=== PATIENT | female | born 1980 | race Hispanic/Latino ===

== ENCOUNTER 2017-01-12 13:08 | Emergency (ER) | payer MEDICAID ==
[2017-01-12 14:08] LABS: BASO % 0.3 % (0.0-2.0); EOS % 0.2 % (0.0-4.0); HEMATOCRIT 41.7 % (34.0-47.0); LYMPH % 10.1 % (20.0-40.0); MEAN CELL VOLUME 89.7 fL (81.0-99.0); MEAN CORPUSCULAR HEMOGLOBIN 29.9 pg (27.0-31.0); MEAN CORPUSCULAR HGB CONC 33.4 g/dL (33.0-37.0); MEAN PLATELET VOLUME 9.2 fL (7.2-11.7); MONO # 0.3 K/uL (0.0-0.8); MONO % 3.5 % (0.0-10.0); NRBC % 0.1 % (0.0-2.0); RED CELL DISTRIBUTION WIDTH 13.7 % (11.5-14.5); WHITE BLOOD COUNT 9.7 K/uL (4.8-10.8)
[2017-01-12 14:14] LABS: URINE BILIRUBIN NEGATIVE (NEGATIVE); URINE BLOOD NEGATIVE (NEGATIVE); URINE COLOR Colorless (YELLOW); URINE GLUCOSE (UA) NORMAL (Normal); URINE KETONE NEGATIVE (NEGATIVE); URINE LEUKOCYTE ESTERASE NEG Leu/uL (Negative); URINE PROTEIN NEGATIVE (NEGATIVE); URINE UROBILINOGEN NORMAL mg/dL (0.2-1.0)
[2017-01-12 14:17] LABS: CHLORIDE 102 mmol/L (98-107); POTASSIUM 3.8 mmol/L (3.6-5.2); SODIUM 138 mmol/L (132-148)
[2017-01-12 14:19] LABS: BILIRUBIN,TOTAL 0.6 mg/dL (0.2-1.3); GFR AFRICAN-AMERICAN > 60
[2017-01-12 14:20] LABS: ALB/GLOB RATIO 1.6 (1.0-2.1); ALKALINE PHOSPHATASE 77 U/L (38-126); ALT/SGPT 21 U/L (9-52); AST/SGOT 22 U/L (14-36); BLOOD UREA NITROGEN 6 mg/dL (7-17); CARBON DIOXIDE 23 mmol/L (22-30); GLUCOSE,RANDOM 96 mg/dL (65-105); TOTAL PROTEIN 7.6 g/dL (6.3-8.3)
[2017-01-12 14:21] LABS: ALCOHOL SERUM < 10 mg/dl (0-10); CALCIUM 8.8 mg/dl (8.6-10.4)
--- NOTE | 2017-01-12 14:21 | C.PDOC ---
History Of Present Illness 36 year old patient presents to the ED complaining of severe anxietyand depression. Patient has a history of depression follow her mothers suicide 15 years ago. Her mother committed suicide by hanging herself. Patient states she has been fine since then, but for the last few weeks she has been feeling anxious. She has not been sleeping or eating normally. She also complains of feeling short of breath with chest pain and a feeling of tremors. Patient recently had a psychiatric evaluation at [facility] and was referred to outpatient therapy, but she couldn't follow up. Today, patient complains of feeling agitated and shaky. She states she "can't go on like this anymore". She has intermittent suicidal ideation. She denies having a specific plan. Patient notes she has chronic back pain which is well controlled in pain management Patient admits to smoking cigarettes, but denies drug use. Patient also denies nausea, vomiting, numbness, weakness, homicidal ideation. Time Seen by Provider: 01/12/17 13:23 Chief Complaint (Nursing): Psychiatric Evaluation History Per: Patient History/Exam Limitations: no limitations Onset/Duration Of Symptoms: Other (last few weeks) Current Symptoms Are (Timing): Still Present Suicide/Self Injury Attempted (Context): None Modifying Factor(s): None Severity: None Pain Scale Rating Of: 0 Associated Symptoms: Anxiety, Agitation, Depression, Suicidal Thoughts Recent travel outside of the [place]: No Past Medical History Reviewed: Historical Data, Nursing Documentation, Vital Signs Vital Signs: Last Vital Signs Temp 98.0 F 01/12/17 13:16 Pulse 84 01/12/17 13:16 Resp 20 01/12/17 13:16 BP 143/86 01/12/17 13:16 Pulse Ox 100 01/12/17 16:29 Family History: States: Unknown Family Hx - Social History Hx Tobacco Use: Yes (cigarettes) Hx Alcohol Use: No Hx Substance Use: No Review Of Systems Except As Marked, All Systems Reviewed And Found Negative. Cardiovascular: Negative for: Palpitations Respiratory: Positive for: Shortness of Breath Gastrointestinal: Negative for: Nausea, Vomiting Musculoskeletal: Negative for: Back Pain Neurological: Negative for: Weakness, Numbness Psych: Positive for: Anxiety, Depression, Suicidal ideation. Negative for: Other (homicidal ideation) Physical Exam - Physical Exam Appears: Non-toxic, Agitated, Other (sad affect, shakey, soft spoken, cooperative) Skin: Warm, Dry Head: Atraumatic, Normacephalic Neck: Normal ROM, Supple Chest: Symmetrical Cardiovascular: Rhythm Regular Respiratory: Normal Breath Sounds, No Rales, No Rhonchi, No Wheezing Gastrointestinal/Abdominal: Soft, No Tenderness Back: Normal Inspection, No CVA Tenderness, No Vertebral Tenderness Extremity: Normal ROM Neurological/Psych: Oriented x3, Normal Speech Gait: Steady ED Course And Treatment - Laboratory Results Result Diagrams: 01/12/17 14:02 01/12/17 14:02 Lab Interpretation: No Acute Changes ECG: Interpreted By Me ECG Rhythm: Sinus Rhythm ECG Interpretation: Normal O2 Sat by Pulse Oximetry: 100 (room air) Pulse Ox Interpretation: Normal - Radiology CXR: Interpreted by Me CXR Interpretation: Yes: No Acute Disease Progress Note: 4:30 Patient takes Oxycodone 60mg Immediate release Q4H and is due to have Nortryptline 10mg PO now. Medications ordered for her. Reevaluation Time: 14:54 Reassessment Condition: Improved (after PO Ativan. Awaiting psychiatric eval.) Medical Decision Making Medical Decision Making: Plan: * EKG * Labs * Ativan * Chest x-ray * * Patient is medically cleared for psychiatric evaluation and transfer. Disposition - Disposition Disposition: Trans to Other Acute Care Hosp Disposition Time: 18:56 Condition: STABLE - Clinical Impression Clinical Impression: Moderate major depression, single episode, Suicidal ideation - Scribe Statement The provider has reviewed the documentation as recorded by the Scribe Sima Carreon Provider Attestation: All medical record entries made by the Scribe were at my direction and personally dictated by me. I have reviewed the chart and agree that the record accurately reflects my personal performance of the history, physical exam, medical decision making, and the department course for this patient. I have also personally directed, reviewed, and agree with the discharge instructions and disposition.
--- NOTE | 2017-01-12 14:59 | RAD ---
HISTORY: medical clearance COMPARISON: No prior. TECHNIQUE: Chest PA and lateral FINDINGS: LUNGS: No active pulmonary disease. PLEURA: No significant pleural effusion identified. No pneumothorax apparent. CARDIOVASCULAR: Normal. OSSEOUS STRUCTURES: No significant abnormalities. VISUALIZED UPPER ABDOMEN: Normal. OTHER FINDINGS: None. IMPRESSION: No active disease.
[2017-01-12 15:07] LABS: FREE T4 0.85 ng/dL (0.78-2.19)
[2017-01-12 15:21] LABS: THYROID STIMULATING HORMONE 0.1 mIU/L (0.46-4.68)
[2017-01-12] MEDS ORDERED: oxyCODONE 30 mg Immediate Release Tab PO STA (16:26)
[2017-01-12] MEDS ORDERED: oxyCODONE 30 mg Immediate Release Tab ONE (16:38)
[2017-01-12 19:06] VITALS: BP 114/78
[2017-01-12 23:02] VITALS: PULSE 88; RESP 18; TEMP 98.2; O2SAT 100
--- NOTE | 2017-01-13 22:59 | CARD ---
APPROVED REPORT EKG Measurement Heart [id number] [place] [id number] <Conclusion> Normal sinus rhythm Normal ECG
== END 2017-01-12 23:00 | disposition short-term general hospital (02) ==
LOC: C.ER 13:08
DX: F32.1 Major depressive disorder, single episode, moderate (principal); R45.851 Suicidal ideations; F17.210 Nicotine dependence, cigarettes, uncomplicated

== ENCOUNTER 2017-09-06 21:40 | Inpatient (IN) | payer MEDICAID ==
--- NOTE | 2017-09-06 21:54 | C.PDOC ---
History Of Present Illness pt was accepted in transfer from [facility] by dr Boyce. Pt was medically cleared at [facility]. Denies any suicidal or homicidal ideation at the present time. Time Seen by Provider: 09/06/17 21:51 Chief Complaint (Nursing): Psychiatric Evaluation History Per: Patient History/Exam Limitations: no limitations Onset/Duration Of Symptoms: Days Current Symptoms Are (Timing): Still Present Suicide/Self Injury Attempted (Context): None Modifying Factor(s): None Severity: None Associated Symptoms: Anxiety, Depression Involuntary Hold By: None Recent travel outside of the [place]: No Additional History Per: Patient Past Medical History Reviewed: Historical Data, Nursing Documentation, Vital Signs - Medical History PMH: Anxiety, Back Problems, Depression, Fibromyalgia Denies: Diabetes, Hepatitis, HIV, HTN, Chronic Kidney Disease, Seizures, Sexually Transmitted Disease - [facility] Procedures APPLICATION OF SPLINT (05/25/07) CLOSURE SKIN & SUBCUTANEOUS NEC (02/15/02) GROUP PSYCHOTHERAPY (01/12/17) INDIVIDUAL PSYCHOTHERAPY, COGNITIVE-BEHAVIORAL (01/12/17) INJECT/INFUSE NEC (05/04/07) NEBULIZER THERAPY (11/09/05) PSYCHIAT DRUG THERAP NEC (12/24/02) RADICAL EXCIS SKIN LES (12/29/01) Family History: States: No Known Family Hx - Social History Hx Tobacco Use: Yes (cigarettes) Hx Alcohol Use: No Hx Substance Use: No - Immunization History Hx Tetanus Toxoid Vaccination: No Hx Influenza Vaccination: No Hx Pneumococcal Vaccination: No Review Of Systems Constitutional: Negative for: Fever, Chills Eyes: Negative for: Redness Cardiovascular: Negative for: Chest Pain Respiratory: Negative for: Shortness of Breath Gastrointestinal: Negative for: Abdominal Pain Genitourinary: Negative for: Dysuria Musculoskeletal: Negative for: Back Pain Skin: Negative for: Rash Neurological: Negative for: Confusion, Dizziness Psych: Positive for: Anxiety, Depression Physical Exam - Physical Exam Appears: Non-toxic, No Acute Distress Skin: Warm, Dry Head: Normacephalic Eye(s): bilateral: Normal Inspection Chest: Symmetrical Cardiovascular: Rhythm Regular Respiratory: No Rales, No Rhonchi, No Wheezing Gastrointestinal/Abdominal: Soft, No Tenderness, No Distention Back: Normal Inspection Extremity: Normal ROM Extremity: Bilateral: Atraumatic Neurological/Psych: Oriented x3 Gait: Steady Disposition Discussed With : Mustapha Boyce Comment: accepted the pt onhis service and took over the care at 9:53PM Doctor Will See Patient In The: Hospital Counseled Patient/Family Regarding: Studies Performed, Diagnosis - Disposition Disposition: HOSPITALIZED Disposition Time: 21:53 Condition: FAIR - POA Present On Arrival: None - Clinical Impression Clinical Impression: Depression, Anxiety Decision To Admit - Pt Status Changed To: Hospital Disposition Of: Inpatient - Admit Certification Admit to Inpatient:: After my assessment, the patient will require hospitalization for at least two midnights. This is because of the severity of symptoms shown, intensity of services needed, and/or the medical risk in this patient being treated as an outpatient. - InPatient: Physician Admission Certification: I certify that this patient requires 2 or more midnights of care for the following reason:: After my assessment, the patient will require hospitalization for at least two midnights. This is because of the severity of symptoms shown, intensity of services needed, and/or the medical risk in this patient being treated as an outpatient. - . Bed Request Type: Psychiatry Admitting Physician: Mustapha Boyce Patient Diagnosis: Depression, Anxiety
--- NOTE | 2017-09-06 22:42 | PCM.BM ---
<Zunilda Maria - Last Filed: 09/06/17 22:41> Treatment Plan Problems - Problems identified on initial assessmt Suicidal Ideation Date Initiated: 09/06/17 Time Initiated: 22:41 Assessment reference: NA Status: Monitor Depression Date Initiated: 09/06/17 Time Initiated: 22:42 Assessment reference: NA Status: Active Treatment assets and liabiliti Patient Assests: cooperative, insightful Patient Liabilities: substance abuse - Milieu Protocol Maintain good personal hygiene: every shift Encourage regular showers, every shift Remind patient to perform daily oral care, every shift Assist patient to perform ADL's Maintain personal safety: every shift Educate patient to report safety concerns to staff, every shift Monitor environment for contraband/sharps Medication safety: Monitor for expected outcome, potential side effects: every shift, Assess barriers to learning: every shift, Assess readiness for medication education: every shift <Leonor Mancia - Last Filed: 09/07/17 10:56> Family Contact Family involvement: Family/SO is involved Family contact: Patient declines to allow family contact at present - Goals for Treatment Patient goals for treatment: "I need a therapist." Discharge/Continuing Care - Education Needs Education Needs: Patient Medication, Patient Coping Skills, Patient Placement options, Patient Community resources - Discharge Discharge Criteria: Tolerates medication w/o severe side effects, No longer exhibiting s/s of withdrawal, Reduction of target symptoms Discharge to:: Home, With Family - Treatment Team Participation Discussed with Family/SO: No Was Patient/Family/SO present at Treatment Team Meeting: Yes <Cathleen Fuentes - Last Filed: 09/07/17 11:22> - Diagnosis (1) Bipolar affective, depress, unspec Status: Acute Interventions: 09/07/17 11:22 * Assess/adjust medications daily and /or as needed * See patient on an individual basis 7x/week to assess level of manic behaviors and stability * Discuss risks, benefits, side effects and alternatives of medications * (2) Opioid use disorder, severe, dependence Status: Acute Interventions: 09/07/17 11:22 * Assess 7x/week regarding severity of withdrawal * Educate regarding risks, benefits, side effects and alternatives of medications * Use Motivational Interviewing for abstinence * Use CBT for relapse prevention * Medication management for withdrawal symptoms * Encourage medication assisted treatment *
--- NOTE | 2017-09-07 10:56 | PCM.PSYCH ---
Initial Psychiatric Evaluation - Initial Psychiatric Evaluation Type of Admission: Voluntary Legal Status: Capacity Chief Complaint (in patient's own words): I was feeling depressed.' History of Present Illness and Precipitating Events: Pt is a 36 year old CF, currently lives with her and 1 daughter and works as [employer] tech, was transferred from [facility] for depressed mood and suicidal ideation. Pt reports history of bipolar disorder and reports history of multiple in patient psychiatric admissions for depression and PTSD, last discharged 6 months ago. She reports that she is taking oxycodone for back pain and endometriosis. 1 week ago she fell down on a knife, was taken to the [facility] [place] [place] and abdominal surgery was done. She reports that, since then she is becoming increasingly depressed. Yesterday she developed suicidal ideation so came to the hospital to get help. She reports h/o suicidal ideation in the past but never attempted. Patient also reports of taking 4-6 30mg oxycodone pills, but denies any opioid abuse. She reports depressed mood and feelings of hopelessness and worthlessness. She also reports racing of thoughts, poor concentration and poor sleep. Pt remained isolated and withdrawn in the unit. She denies any HI. She also denies any AVH or any delusions. PMH: Endometriosis Current Medications: Active Medications Generic Name Dose Route Start Last Admin Trade Name Freq PRN Reason Stop Dose Admin Hydroxyzine HCl 25 mg 09/06/17 23:00 Atarax PO Q6 PRN Anxiety Lorazepam 1 mg 09/06/17 23:00 09/07/17 06:50 Ativan PO 1 mg Q6 PRN Administration Agitation Pneumococcal Polyvalent Vaccine 0.5 ml 09/09/17 10:20 Pneumovax 23 Vaccine IM 09/09/17 10:21 .ONCE ONE Trazodone HCl 50 mg 09/06/17 23:00 09/06/17 23:21 Desyrel PO 50 mg HS PRN Administration Insomnia Past Psychiatric History - Past Psychiatric History Previous Treatment History: Inpatient Pertinent Medical Hx (Current Medical&Sleep Prob, Allergies): Allergies Allergy/AdvReac Type Severity Reaction Status Date / Time No Known Allergies Allergy Unverified 09/06/17 21:56 No Known Home Med 09/06/17 Review of Systems - Review of Systems All systems: reviewed and no additional remarkable complaints except - Psychiatric Psychiatric: Anxiety, Irritability, Suicidal Ideation Mental Status Examination - Personal Presentation Personal Presentation: Looks stated age - Affect Affect: Constricted, Depressed - Motor Activity Motor Activity: Calm - Reliability in Providing Information Reliability in Providing Information: Good - Speech Speech: Organized - Mood Mood: Depressed, Anxious - Formal Thought Process Formal Thought Process: No Impairment - Obsessions/Compulsions Obsessions: No Compulsions: No - Cognitive Functions Orientation: Person, Place, Situation, Time Sensorium: Alert Attention/Concentration: Attentive Abstract Thinking: [place] Estimate of Intelligence: Below average Judgement: Imparied, as evidence by: Poor judgement, Imparied, as evidence by: Lack of insight into illness - Risk Risk: Suicidal, Diminished functioning - Strength & Assets Inventory Strength & Assets Inventory: Family support, Employment status DSM 5 DX - DSM 5 DSM 5 Diagnosis: Bipolar disorder mixed severe without psychotic features Opiod use moderate - Recommended/Plan of Treatment Treatment Recommendations and Plan of Treatment: Bipolar disorder mixed severe without psychotic features CBT Psychoeducation Supportive therapy, group therapy, individual therapy Prozac 20 mg PO Daily Neurontin 300 mg by mouth 3 times a day [place] 300 mg PO TID Trazodone 100 mg by mouth daily at bedtime Opioid use disorder moderate CBT Psychoeducation Supportive therapy, individual therapy Use [place] for abstinence Endometriosis Monitor s/s Oxycodone 10 mg PO BID - Smoking Cessation Smoking Cessation Initiated: No
[2017-09-07] MEDS: oxyCODONE 10 mg ER Tab (oxyCONTIN) PO SCH ×2 (13:17→21:33)
[2017-09-08] MEDS: oxyCODONE 10 mg ER Tab (oxyCONTIN) PO SCH ×2 (10:10→21:14)
--- NOTE | 2017-09-08 10:35 | PCM.PYCHPN ---
Psychiatric Progress Note - Psychiatric Progress Note Patient seen today, length of contact: 15 min Patient Chief Complaint: I am feeling depressed.' Problems Identified/Issues Discussed: Patient seen and evaluated, chart reviewed and discussed with the nurse. As per the staff, patient still appears isolated, depressed and withdrawn. Patient still reports depressed mood and reports at times feelings of hopelessness or helplessness. She reports racing to thoughts, flight of ideas and poor sleep. She denies any auditory or visual hallucinations or any psychotic symptoms. She is compliant with her medications and denies any side effects. She needs some more time for stabilization. Supportive therapy and psychoeducation were given. Medication Change: Yes (increase prozac) Medical Record Reviewed: Yes Mental Status Examination - Cognitive Function Orientation: Person, Place, Situation, Time Memory: Intact Attention: WNL Concentration: Poor Association: WNL Fund of Knowledge: Poor - Mood Mood: Depressed, Anxious - Affect Affect: Constricted - Speech Speech: Soft - Formal Thought Process Formal Thought Process: No Impairment - Suicidal Ideation Suicidal Ideation: No - Homicidal Ideation Homicidal Ideation: No Goal/Treatment Plan - Goal/Treatment Plan Need for Continued Stay: Severe depression anxiety, Severe functional impairment Progress Toward Problem(s) and Goals/Treatment Plan: Bipolar disorder mixed severe without psychotic features CBT Psychoeducation Supportive therapy, group therapy, individual therapy Prozac 20 mg PO Daily Neurontin 300 mg by mouth 3 times a day [place] 300 mg PO TID Trazodone 100 mg by mouth daily at bedtime Opioid use disorder moderate CBT Psychoeducation Supportive therapy, individual therapy Use [place] for abstinence Endometriosis Monitor s/s Oxycodone 10 mg PO BID - Smoking Cessation Smoking Cessation Initiated: No
[2017-09-09] MEDS: Influenza Vaccine 60 mcg/0.5 mL SYR (4YR UP) IM ONE ×2 (09:19→11:45)
[2017-09-09] MEDS: oxyCODONE 10 mg ER Tab (oxyCONTIN) PO SCH ×2 (09:22→21:05)
[2017-09-09] MEDS ORDERED: Pneumococcal 23-Valent Vaccine IM ONE (10:20)
--- NOTE | 2017-09-09 10:57 | PCM.PYCHPN ---
Psychiatric Progress Note - Psychiatric Progress Note Patient seen today, length of contact: 15 min Patient Chief Complaint: I was feeling depressed.' Problems Identified/Issues Discussed: Patient seen and evaluated, chart reviewed and discussed with the nurse. Today patient was seen during treatment team meeting. Patient reports racing of thoughts, irritability, agitation and poor sleep. She also reports at times depressed mood. She reports that she has to follow-up with the surgery. She still reporting a lot of pain because of endometriosis. She is compliant with her medications and denies any side effects. She needs more time for stabilization. Supportive therapy and psychoeducation were given. Medication Change: Yes (increase lithium) Medical Record Reviewed: Yes Mental Status Examination - Cognitive Function Orientation: Person, Place, Situation, Time Memory: Intact Attention: WNL Concentration: Poor Association: WNL Fund of Knowledge: Poor - Mood Mood: Depressed, Anxious - Affect Affect: Constricted, Depressed - Speech Speech: Soft - Formal Thought Process Formal Thought Process: No Impairment - Suicidal Ideation Suicidal Ideation: No - Homicidal Ideation Homicidal Ideation: No Goal/Treatment Plan - Goal/Treatment Plan Need for Continued Stay: Severe depression anxiety, Severe functional impairment Progress Toward Problem(s) and Goals/Treatment Plan: Bipolar disorder mixed severe without psychotic features CBT Psychoeducation Supportive therapy, group therapy, individual therapy Prozac 40 mg PO Daily Neurontin 300 mg by mouth 3 times a day [place] 600 mg PO BID Trazodone 100 mg by mouth daily at bedtime Seroquel 100 mg PO QHS Opioid use disorder moderate CBT Psychoeducation Supportive therapy, individual therapy Use [place] for abstinence Endometriosis Monitor s/s Oxycodone 10 mg PO BID - Smoking Cessation Smoking Cessation Initiated: No
[2017-09-10] MEDS: oxyCODONE 10 mg ER Tab (oxyCONTIN) PO SCH (09:24)
--- NOTE | 2017-09-10 17:38 | PCM.PYCHPN ---
Psychiatric Progress Note - Psychiatric Progress Note Patient seen today, length of contact: 15 min Patient Chief Complaint: "I am very very anxious" Problems Identified/Issues Discussed: The pt is seen, chart reviewed, case discussed with staff. The pt is compliant with medications and reports no side-effects. Symptoms are improving but needs more time to stabilize. She is claiming to be very anxious and using "evry method" but no relief. She doesn't look that anxious Med changes made After care discussed, support and psychoeducation given. Medication Change: Yes (see list) Medical Record Reviewed: Yes Mental Status Examination - Cognitive Function Orientation: Person, Place, Situation, Time Memory: Intact Attention: WNL Concentration: Poor Association: WNL Fund of Knowledge: Poor - Mood Mood: Depressed, Anxious - Affect Affect: Constricted, Depressed - Speech Speech: Soft - Formal Thought Process Formal Thought Process: No Impairment - Suicidal Ideation Suicidal Ideation: No - Homicidal Ideation Homicidal Ideation: No Goal/Treatment Plan - Goal/Treatment Plan Need for Continued Stay: Severe depression anxiety, Severe functional impairment Progress Toward Problem(s) and Goals/Treatment Plan: Continue medications - doses are increased Support and psychoeducation daily Attend groups and activities daily After care planning by DAVID
[2017-09-10] MEDS: oxyCODONE 10 mg ER Tab (oxyCONTIN) PO PRN (21:47)
[2017-09-11] MEDS: oxyCODONE 10 mg ER Tab (oxyCONTIN) PO PRN ×2 (09:40→21:29)
--- NOTE | 2017-09-12 00:46 | PCM.PYCHPN ---
Psychiatric Progress Note - Psychiatric Progress Note Patient seen today, length of contact: 17 min Patient Chief Complaint: "Still the same" Problems Identified/Issues Discussed: Seen again, chart reviewed Still med-seeking, nothing is enough and she asks for more and more She will discuss the need for Pattie Santana Some changes made Non-pharm mgt of anxiety discussed Medication Change: Yes (increase lithium) Medical Record Reviewed: Yes Mental Status Examination - Cognitive Function Orientation: Person, Place, Situation, Time Memory: Intact Attention: WNL Concentration: Poor Association: WNL Fund of Knowledge: Poor - Mood Mood: Depressed, Anxious - Affect Affect: Constricted, Depressed - Speech Speech: Appropriate - Formal Thought Process Formal Thought Process: No Impairment - Suicidal Ideation Suicidal Ideation: No - Homicidal Ideation Homicidal Ideation: No Goal/Treatment Plan - Goal/Treatment Plan Need for Continued Stay: Severe depression anxiety, Discharge may exacerbated symptoms, Severe functional impairment Progress Toward Problem(s) and Goals/Treatment Plan: Continue medications - see new doses Support and psychoeducation daily Attend groups and activities daily After care planning by DAVID
[2017-09-12] MEDS: oxyCODONE 10 mg ER Tab (oxyCONTIN) PO PRN ×2 (09:50→21:16)
--- NOTE | 2017-09-12 09:54 | PCM.PYCHPN ---
Psychiatric Progress Note - Psychiatric Progress Note Patient seen today, length of contact: 15 min Patient Chief Complaint: "I feel anxious and shaky." Problems Identified/Issues Discussed: The pt is seen, chart reviewed, case discussed with staff. Patient appears very irritable and anxious. She states she was not able to sleep. When discussing her discharge day she became very agitated stating "my meds keep changing" The pt is compliant with medications and reports no side-effects. Symptoms are improving but needs more time to stabilize. After care discussed, support and psychoeducation given. Medication Change: Yes (increase lithium) Medical Record Reviewed: Yes Mental Status Examination - Cognitive Function Orientation: Person, Place, Situation, Time Memory: Intact Attention: WNL Concentration: WNL Association: WNL Fund of Knowledge: WNL - Mood Mood: Depressed, Anxious - Affect Affect: Constricted, Depressed - Speech Speech: Soft - Formal Thought Process Formal Thought Process: No Impairment - Suicidal Ideation Suicidal Ideation: No - Homicidal Ideation Homicidal Ideation: No Goal/Treatment Plan - Goal/Treatment Plan Need for Continued Stay: Severe depression anxiety, Severe functional impairment Progress Toward Problem(s) and Goals/Treatment Plan: Bipolar disorder mixed severe without psychotic features CBT Psychoeducation Supportive therapy, group therapy, individual therapy Prozac 40 mg PO Daily Neurontin 300 mg by mouth 3 times a day [place] 600 mg PO BID Trazodone 100 mg by mouth daily at bedtime Seroquel 100 mg PO QHS Opioid use disorder moderate CBT Psychoeducation Supportive therapy, individual therapy Use [place] for abstinence Endometriosis Monitor s/s Oxycodone 10 mg PO BID
[2017-09-13 06:16] VITALS: BP 99/61; PULSE 93; RESP 20; TEMP 97.6; O2SAT 96
--- NOTE | 2017-09-13 09:52 | PCM.PYCHDC ---
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 Pt reports history of bipolar disorder and reports history of multiple in patient psychiatric admissions for depression and PTSD, last discharged 6 months ago. She reports that she is taking oxycodone for back pain and endometriosis. 1 week ago she fell down on a knife, was taken to the [facility] and abdominal surgery was done. She reports that, since then she is becoming increasingly depressed. Yesterday she developed suicidal ideation so came to the hospital to get help. She reports h/o suicidal ideation in the past but never attempted. Patient also reports of taking 4-6 30mg oxycodone pills, but denies any opioid abuse. She reports depressed mood and feelings of hopelessness and worthlessness. She also reports racing of thoughts, poor concentration and poor sleep. Pt remained isolated and withdrawn in the unit. She denies any HI. She also denies any AVH or any delusions. Consultations:: List each consultation separately and include: 1. Reason for request. 2. Findings. 3. Follow-up Summary of Hospital Course include:: 1. Description of specific treatment plan utilized for patients during their course of treatmen. 2. Summarize the time- course for resolution of acute symptoms and/or regressed behaviors. 3. Describe issues identified and worked on during hospitalization. 4. Describe medication utilized. 5. Describe medical problems identified and treated. 6. 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 Pt reports history of bipolar disorder and reports history of multiple in patient psychiatric admissions for depression and PTSD, last discharged 6 months ago. She reports that she is taking oxycodone for back pain and endometriosis. 1 week ago she fell down on a knife, was taken to the [facility] and abdominal surgery was done. She reports that, since then she is becoming increasingly depressed. Yesterday she developed suicidal ideation so came to the hospital to get help. She reports h/o suicidal ideation in the past but never attempted. Patient also reports of taking 4-6 30mg oxycodone pills, but denies any opioid abuse. She reports depressed mood and feelings of hopelessness and worthlessness. She also reports racing of thoughts, poor concentration and poor sleep. Pt remained isolated and withdrawn in the unit. She denies any HI. She also denies any AVH or any delusions. PMH: Endometriosis - Diagnosis (1) Bipolar affective, depress, unspec Current Visit: No Status: Acute (2) Opioid use disorder, severe, dependence Current Visit: Yes Status: Acute - Final Diagnosis (DSM 5) Condition upon Discharge: FAIR Disposition: HOME/ ROUTINE Follow-up Treatment Plan: Bipolar disorder mixed severe without psychotic features CBT Psychoeducation Supportive therapy, group therapy, individual therapy Prozac 40 mg PO Daily Neurontin 300 mg by mouth 3 times a day Deweese 600 mg PO BID Trazodone 100 mg by mouth daily at bedtime Seroquel 100 mg PO QHS Opioid use disorder moderate CBT Psychoeducation Supportive therapy, individual therapy Use KS for abstinence Endometriosis Monitor s/s Oxycodone 10 mg PO BID Prescriptions/Medication Reconciliation: FLUoxetine [Prozac] 40 mg PO DAILY #30 cap FLUoxetine [Prozac] 20 mg PO DAILY #30 cap Gabapentin [Neurontin] 400 mg PO TID #90 cap QUEtiapine [Seroquel] 100 mg PO HS #30 tab QUEtiapine [SEROquel] 50 mg PO BID #60 tab traZODone [Desyrel] 100 mg PO HS PRN #30 tab PRN Reason: Insomnia
[2017-09-13] MEDS: oxyCODONE 10 mg ER Tab (oxyCONTIN) PO PRN (09:55)
== END 2017-09-13 11:40 | disposition home or self-care (01) | DRG 430 ==
LOC: C.ER 21:40 → C.5E 21:52
PROC: GZ3ZZZZ Medication Management (ICD-10-PCS; principal; 2017-09-06)
PROC: GZHZZZZ Group Psychotherapy (ICD-10-PCS; 2017-09-06)
PROC: GZ56ZZZ Individual Psychotherapy, Supportive (ICD-10-PCS; 2017-09-06)
PROC: HZ59ZZZ Individual Psychotherapy for Substance Abuse Treatment, Supportive (ICD-10-PCS; 2017-09-06)
PROC: HZ89ZZZ Medication Management for Substance Abuse Treatment, Other Replacement Medication (ICD-10-PCS; 2017-09-06)
DX: F31.63 Bipolar disorder, current episode mixed, severe, without psychotic features (principal); F11.20 Opioid dependence, uncomplicated; R45.851 Suicidal ideations; F43.10 Post-traumatic stress disorder, unspecified; M79.7 Fibromyalgia; N80.9 Endometriosis, unspecified; F17.210 Nicotine dependence, cigarettes, uncomplicated